=== PATIENT | male | born 1955 | race Two or more races ===

== ENCOUNTER 2017-02-02 21:27 | Emergency (ER) | payer SELFPAY ==
[~2017-02-02] VITALS: Ht 170.2 cm; Wt 80.0 kg
[2017-02-03 00:52] VITALS: BP 121/78
== END 2017-02-03 00:54 | disposition home or self-care (01) ==
LOC: EDBD 21:27 → ED 22:25
DX: F10.120 Alcohol abuse with intoxication, uncomplicated (principal)
CPT/HCPCS: 36415; 70450; 80307; 99285